=== PATIENT | male | born 1995 | race Caucasian/White ===

== ENCOUNTER 2017-03-02 08:33 | Emergency (ER) | payer OTHER ==
[~2017-03-02] VITALS: Ht 180.3 cm; Wt 80.0 kg
[~2017-03-02 08:33] MED LIST: DIAZ10TA PO
[2017-03-02] MEDS ORDERED: ONDANSETRON 2MG/ML, 2ML IVPush ONE (09:00)
[2017-03-02] MEDS ORDERED: LORazepam 2 MG/ML, 1ML IVPush ONE (09:00)
[2017-03-02] MEDS ORDERED: SODIUM CHLORIDE FLUSH 10ML SYR IVF ONE (09:00)
[2017-03-02] MEDS ORDERED: SODIUM CHLORIDE 0.9% 1,000ML IVBOLUS ONE ×2 (09:00→13:00)
[2017-03-02] MEDS ORDERED: ONDANSETRON 2MG/ML, 2ML ONE (09:34)
[2017-03-02] MEDS ORDERED: LORazepam 2 MG/ML, 1ML ONE (09:36)
[2017-03-02 09:50] LABS: BLOOD UREA NITROGEN 15 mg/dL (7-18)
[2017-03-02 09:54] LABS: ASPARTATE AMINO TRANSFERASE 13 U/L (15-37)
[2017-03-02] MEDS ORDERED: MAALOX/HYOSCYAMINE/LIDOCAINE 45 ML BOTTLE ONE (12:33)
[2017-03-02] MEDS ORDERED: MAALOX/HYOSCYAMINE/LIDOCAINE 45 ML BOTTLE PO ONE (13:00)
[2017-03-02 15:18] VITALS: BP 100/61
== END 2017-03-02 15:31 | disposition home or self-care (01) ==
LOC: ED 14:51
DX: K29.00 Acute gastritis without bleeding (principal); R10.84 Generalized abdominal pain; F41.1 Generalized anxiety disorder
CPT/HCPCS: 36415; 70450; 73080; 80053; 81003; 83690; 85025; 86677; 96361; 96374; 96375; 99285; J2060; J2405; J7030

== ENCOUNTER 2017-04-11 18:13 | Emergency (ER) | payer OTHER ==
[~2017-04-11] VITALS: Ht 177.8 cm; Wt 78.9 kg
[2017-04-11] MEDS ORDERED: SODIUM CHLORIDE FLUSH 10ML SYR IVF ONE (19:00)
[2017-04-11] MEDS ORDERED: SODIUM CHLORIDE 0.9% 1,000ML IVBOLUS ONE (19:00)
[2017-04-11 19:18] LABS: BLOOD UREA NITROGEN 20 mg/dL (7-18)
[2017-04-11 19:21] LABS: ASPARTATE AMINO TRANSFERASE 21 U/L (15-37)
[2017-04-11 20:02] VITALS: BP 102/59
[2017-04-11] MEDS ORDERED: KETOROLAC 30 MG/1 ML IVPush ONE (20:30)
[2017-04-11] MEDS ORDERED: KETOROLAC 30 MG/1 ML ONE (20:35)
== END 2017-04-11 20:48 | disposition home or self-care (01) ==
LOC: ED 19:36
DX: R07.89 Other chest pain (principal); R55 Syncope and collapse; E86.0 Dehydration; F17.210 Nicotine dependence, cigarettes, uncomplicated
CPT/HCPCS: 36415; 80053; 82550; 83735; 85025; 93005; 96361; 96374; 99285; J1885; J7030

== ENCOUNTER 2019-05-19 16:30 | Emergency (ER) | payer OTHER ==
[~2019-05-19] VITALS: Ht 177.8 cm; Wt 90.0 kg
--- NOTE | 2019-05-19 17:07 | NUR ---
Pt resting on gurney, placed on monitor for routine vss, vitals stable, pt c/o abdominal pain, improved at rest. Deneis n/v/d. AOx4, speaks in full complete sentences, no grimacing or guarding noted, no apparent distress, waiting for MD orders. Call light within reach.
[2019-05-19] MEDS ORDERED: ONDANSETRON 2MG/ML, 2ML IVPush ONE (17:30)
[2019-05-19] MEDS ORDERED: SODIUM CHLORIDE FLUSH 10ML SYR IVF ONE (17:30)
[2019-05-19] MEDS ORDERED: HYDROmorphone 2 MG/ML, 1ML IVPush PRN (17:30)
[2019-05-19] MEDS ORDERED: ONDANSETRON 2MG/ML, 2ML ONE ×2 (18:04→19:24)
[2019-05-19] MEDS ORDERED: HYDROmorphone 2 MG/ML, 1ML ONE ×2 (18:05→19:25)
[2019-05-19 18:13] LABS: ALANINE AMINOTRANSFERASE 35 U/L (12-78); ALBUMIN 4.3 g/dL (3.4-5.0); ANION GAP 8 mmol/L (5-15); CHLORIDE 109 mmol/L (98-107); CREATININE 1.01 mg/dL (0.7-1.3)
[2019-05-19 18:15] LABS: ALKALINE PHOSPHATASE 68 U/L (45-117); BASOPHILS # (AUTO) 0.05 x10^3/uL (0-0.1); BASOPHILS % (AUTO) 1 % (0-1); BILIRUBIN,TOTAL 0.5 mg/dL (0.2-1.0); EOSINOPHILS # (AUTO) 0.25 x10^3/uL (0-0.4); EOSINOPHILS % (AUTO) 4 % (1-7); LYMPHOCYTES # (AUTO) 2.37 x10^3/uL (1-3.4); LYMPHOCYTES % (AUTO) 34 % (22-44); MD NO; MEAN CORPUSCULAR HEMOGLOBIN 32.2 pg (27.5-34.5); MEAN CORPUSCULAR HGB CONC 33.9 g/dL (33.2-36.2); MEAN CORPUSCULAR VOLUME 95.1 fL (81-97); MEAN PLATELET VOLUME 9.8 fL (7.4-10.4); MONOCYTES # (AUTO) 0.42 x10^3/uL (0.2-0.8); MONOCYTES % (AUTO) 6 % (2-9); NEUTROPHILS # (AUTO) 3.99 x10^3/uL (1.8-6.8); NEUTROPHILS % (AUTO) 56 % (42-75); PLATELET COUNT 216 x10^3/uL (130-400); RED BLOOD COUNT 4.53 x10^6/uL (4.38-5.82); RED CELL DISTRIBUTION WIDTH 12.3 % (9.4-14.8); TOTAL PROTEIN 7.5 g/dL (6.4-8.2)
--- NOTE | 2019-05-19 18:25 | NUR ---
TASK RN: PT SITTING UP IN [facility] NOTED. PWD. MOTHER AT BEDSIDE IV ESTABLISHED. PT REFUSING PAIN AND NAUSEA MEDS AT THIS TIME. PT AWARE OF NEED FOR UA, STATES UNABLE TO PROVIDE AT THIS TIME. PT/MOTHER UPDATED TO POC (CT/RESULTS/RECHECK) AND DEMONSTRATES UNDERSTANDING.
[2019-05-19] MEDS ORDERED: OMNIPAQUE 350 MG/ML, 100ML BOTTLE ONE (18:56)
--- NOTE | 2019-05-19 19:18 | NUR ---
pt resting on gurney, monitors in place, call light within reach. urine sample sent to lab awaiting results
--- NOTE | 2019-05-19 19:27 | NUR ---
pt requesting pain medication for abdominal pain, pt medicated per mar
[2019-05-19 19:29] LABS: MICROSCOPIC NOT IND
[2019-05-19 19:45] LABS: CULTURE INDICATED? NO
[2019-05-19 20:14] VITALS: BP 102/62
== END 2019-05-19 20:30 | disposition home or self-care (01) ==
LOC: ED 19:31
DX: R10.84 Generalized abdominal pain (principal); F17.200 Nicotine dependence, unspecified, uncomplicated; F41.1 Generalized anxiety disorder
CPT/HCPCS: 36415; 71260; 74177; 80053; 81003; 83605; 83690; 85025; 96374; 96375; 99284; J1170; J2405; Q9967

== ENCOUNTER 2020-09-17 14:52 | Emergency (ER) | payer OTHER ==
[~2020-09-17] VITALS: Ht 177.8 cm; Wt 89.6 kg
[2020-09-17 15:14] VITALS: BP 147/81
[2020-09-17] MEDS ORDERED: SODIUM CHLORIDE FLUSH 10ML SYR IVF ONE (15:30)
[2020-09-17 16:02] LABS: MICROSCOPIC NOT IND
[2020-09-17 16:02] LABS: BASOPHILS % (AUTO) 1 % (0-1); EOSINOPHILS % (AUTO) 3 % (1-7); LYMPHOCYTES % (AUTO) 17 % (22-44); MEAN CORPUSCULAR HGB CONC 34.7 g/dL (33.2-36.2); MEAN PLATELET VOLUME 9.7 fL (7.4-10.4); MONOCYTES % (AUTO) 10 % (2-9); NEUTROPHILS % (AUTO) 70 % (42-75); PLATELET COUNT 182 x10^3/uL (130-400); RED BLOOD COUNT 4.86 x10^6/uL (4.38-5.82); RED CELL DISTRIBUTION WIDTH 12.6 % (9.4-14.8)
[2020-09-17 16:04] LABS: MD NO
[2020-09-17 16:06] LABS: CHLORIDE 103 mmol/L (98-107)
[2020-09-17 16:12] LABS: ALANINE AMINOTRANSFERASE 38 U/L (12-78); ALBUMIN 4.7 g/dL (3.4-5.0); ALKALINE PHOSPHATASE 82 U/L (45-117); ANION GAP 5 mmol/L (5-15); BILIRUBIN,TOTAL 0.4 mg/dL (0.2-1.0); CALCIUM 8.6 mg/dL (8.5-10.1); CREATININE 1.28 mg/dL (0.7-1.3)
--- NOTE | 2020-09-17 18:35 | NUR ---
Ambulatory at discharge. VSS. Verbalized understanding of discharge instructions and prescription meds.
== END 2020-09-17 18:36 | disposition home or self-care (01) ==
LOC: ED 18:11
DX: N43.3 Hydrocele, unspecified (principal); R30.0 Dysuria; F17.210 Nicotine dependence, cigarettes, uncomplicated
CPT/HCPCS: 36415; 74176; 76870; 80053; 81003; 85025; 87491; 87591; 99285; 99406

== ENCOUNTER → 2020-12-27 | Outpatient (CLI) | payer OTHER ==
[~2020-12-27] MED LIST changes: +OMNIPAQUE 350 MG/ML, 150 ML BOTTLE ONE
== END | disposition home or self-care (01) ==
LOC: RAD 13:38
PROVIDERS: ATTEND Urology
DX: R10.32 Left lower quadrant pain (principal)
CPT/HCPCS: 74178; Q9967